=== PATIENT | female | born 1935 | race Caucasian/White ===

== ENCOUNTER → 2020-01-28 | Outpatient (REF) | payer MEDICARE | LOC: M LAB REF 10:00 | PROVIDERS: ATTEND Dermatology | DX: C44.310 Basal cell carcinoma of skin of unspecified parts of face (principal) ==

== ENCOUNTER → 2020-01-29 | Outpatient (REF) | payer MEDICARE | LOC: M LAB REF 10:20 | PROVIDERS: ATTEND Dermatology | DX: D48.5 Neoplasm of uncertain behavior of skin (principal) ==